=== PATIENT | female | born 1970 | race Caucasian/White ===

== ENCOUNTER → 2018-03-22 16:18 | Outpatient (CLI) | payer OTHER, SELFPAY ==
[2018-04-06 12:09] LABS: HPV HC, High Risk Negative (Negative)
[2018-04-06 13:23] LABS: HPV Reflexed? YES, CHARGE PATIENT
== END ==
PROVIDERS: Visit Provider Family Medicine
DX: Z01.419 Encounter for gynecological examination (general) (routine) without abnormal findings (principal)
CPT/HCPCS: 87624; 88175; G0145

== ENCOUNTER → 2018-04-11 15:36 | Outpatient (CLI) | payer OTHER, SELFPAY ==
--- NOTE | 2018-04-11 15:40 | BI_ITS ---
MAMMOGRAPHY - BILATERAL SCREENING REASON FOR EXAM: Female, 47 years old. Routine annual screening examination. PERTINENT HISTORY: Non-contributory. TECHNIQUE: Digital bilateral breast elida (3D mammographic acquisition) in the CC and MLO projections. 2-D mediolateral oblique (MLO) and craniocaudad (CC) views of both breasts were obtained. CAD: Full Field Digital Mammography with Computer Added Detection was performed. COMPARISON: Comparison is made with prior examination dated September 28, 2016. FINDINGS: Breast Composition: The breasts are heterogeneously dense, which may obscure small masses. There are no dominant masses or suspicious calcifications. Stable appearance of the bilateral small axillary lymph nodes. No other significant abnormalities are identified. There has been no significant change since the prior study. BI/SCREENING MAMM (CAD), BILAT IMPRESSION: Stable bilateral screening mammogram. Yearly follow-up mammogram recommended. (A) ASSESSMENT CATEGORY: BIRADS Category 2: Benign. A letter regarding these results will be sent to the patient by the facility within 30 days. Approximately 10% of breast cancers are not detected by mammography. A normal mammogram should not delay biopsy of a clinically suspicious abnormality. [id number] Electronically Signed: Marc Machado MD at 11:31 EDT Tel [phone], Service support ,
== END ==
PROVIDERS: Visit Provider Family Medicine
DX: Z12.31 Encounter for screening mammogram for malignant neoplasm of breast (principal)
CPT/HCPCS: 77063; 77067

== ENCOUNTER → 2019-04-17 17:32 | Outpatient (CLI) | payer OTHER, SELFPAY ==
[2019-04-24 16:39] LABS: HPV Reflexed? NOT INDICATED
== END ==
PROVIDERS: Referring Provider Family Medicine; Visit Provider Family Medicine
DX: Z12.4 Encounter for screening for malignant neoplasm of cervix (principal)
CPT/HCPCS: 88175; G0145

== ENCOUNTER → 2019-05-03 14:42 | Outpatient (CLI) | payer OTHER, SELFPAY ==
--- NOTE | 2019-05-03 14:44 | BI_ITS ---
MAMMOGRAPHY - BILATERAL SCREENING REASON FOR EXAM: Female, 48 years old. Routine annual screening examination. PERTINENT HISTORY: Non-contributory. TECHNIQUE: Digital bilateral breast ana lilia (3D mammographic acquisition) in the CC and MLO projections. 2-D mediolateral oblique (MLO) and craniocaudad (CC) views of both breasts were obtained. CAD: Full Field Digital Mammography with Computer Added Detection was performed. COMPARISON: Comparison is made with prior study dated April 11, 2018. FINDINGS: Breast Composition: There are scattered areas of fibroglandular density. There are no dominant masses or suspicious calcifications. Stable small bilateral axillary lymph nodes. No other significant abnormalities are identified. There has been no significant change since the prior study. BI/SCREEN MAMM (CAD) W/ANA LILIA BILAT IMPRESSION: Stable bilateral screening mammogram. Yearly follow-up mammogram recommended. (A) ASSESSMENT CATEGORY: BIRADS Category 1: Negative. A letter regarding these results will be sent to the patient by the facility within 30 days. Approximately 10% of breast cancers are not detected by mammography. A normal mammogram should not delay biopsy of a clinically suspicious abnormality. [id number] Electronically Signed: Marc Machado, at 15:43 EDT , Service support ,
== END ==
PROVIDERS: Family Provider Family Medicine; PCP Family Medicine; Referring Provider Family Medicine; Visit Provider Family Medicine
DX: Z12.31 Encounter for screening mammogram for malignant neoplasm of breast (principal)
CPT/HCPCS: 77063; 77067

== ENCOUNTER → 2019-09-24 16:10 | Outpatient (CLI) | payer OTHER, SELFPAY ==
[2019-09-24 17:59] LABS: Absolute Lymphocyte Count 2.53 X10^3/uL (0.83-4.51); Absolute Neutrophil Count 3.7 X10^3/uL (2.0-7.7); Basophil# 0.06 X10^3/uL; Basophil% 0.9 % (0-1); Eosinophil# 0.17 X10^3/uL; Eosinophils% 2.4 % (0-5); Hematocrit 42.2 % (37-47); Hemoglobin 13.8 g/dL (12.0-15.0); Lymphocyte # 2.53 X10^3/ul (4.0); Lymphocyte % 36.2 % (19-41); Mean Corp Hgb Conc 32.7 g/dL (32-36); Mean Corpuscular Hgb 29.2 pg (27.0-32.0); Mean Corpuscular Volume 89.4 fL (81-99); Mean Platelet Vol. 11.8 fl (6.2-12.0); Monocyte# 0.47 X10^3/uL; Monocyte% 6.7 % (0-10); NRBC Flagged by Analyzer 0 % (0-5); Neutrophil # 3.71 X10^3/uL (2.7-7.7); Neutrophil % 53.1 % (47-70); Platelet Count 245 K/mm3 (150-450); RBC Distribution Width SD 42.5 fl (35.1-43.9); Red Blood Count 4.72 M/mm3 (4.2-5.4)
[2019-09-24 18:22] LABS: ALB/GLOB Ratio 1.1 RATIO (0.9-2.4); AST(SGOT) 17 U/L (15-37); Alanine Aminotransfer ALT/SGPT 17 U/L (13-56); Albumin, Serum 3.8 g/dL (3.2-5.0); Alkaline Phosphatase 132 U/L (45-117); Anion Gap 5 (5-15); BUN 14 mg/dL (7-18); BUN/Creat Ratio 16.1 RATIO (10-20); Calcium,Total 8.8 mg/dL (8.5-10.1); Chloride 105 mmol/L (98-107); Creatinine, Serum 0.87 mg/dL (0.55-1.02); EST Glomerular Filtration Rate 74 mL/min (>60); Est Glom Filt Rate - Afr Amer 89 mL/min (>60); Globulin 3.6 g/dL (2.2-4.2); Glucose 97 mg/dL (74-106); Potassium 3.7 mmol/L (3.5-5.1); Protein, Total 7.4 g/dL (6.4-8.2); Sodium Level 138 mmol/L (136-145)
== END ==
PROVIDERS: Family Provider Family Medicine; PCP Family Medicine; Referring Provider Family Medicine; Visit Provider Family Medicine
DX: R00.2 Palpitations (principal)
CPT/HCPCS: 36415; 80053; 84443; 85025

== ENCOUNTER → 2020-04-02 12:17 | Outpatient (CLI) | payer OTHER, SELFPAY ==
--- NOTE | 2020-04-02 12:21 | RAD_ITS ---
STUDY: X-RAY - PELVIS AND RIGHT HIP REASON FOR EXAM: Female, 49 years old. Right hip pain x 4 days -- unaware of any injury TECHNIQUE: 3 views of the pelvis and hip. COMPARISON: None. FINDINGS: There is a non-specific bowel gas pattern. Normal visualized soft tissue structures. Normal bilateral iliac wings, sacroiliac joints and visualized sacrum. Normal bilateral superior and inferior pubic rami. Normal pubic symphysis. Normal bilateral ischial tuberosities. Normal visualized femoral head. Normal acetabulum. Normal hip joint. RAD/HIP, UNI W/ Pelvis 2-3 Views IMPRESSION: Normal x-ray examination of the pelvis and hip. Electronically Signed: Marc Machado, at 12:43 EDT , Service support ,
== END ==
PROVIDERS: PCP Family Medicine; Referring Provider Family Medicine; Visit Provider Family Medicine
DX: M25.551 Pain in right hip (principal)
CPT/HCPCS: 73502

== ENCOUNTER 2020-09-08 12:10 | Emergency (ER) | payer OTHER, SELFPAY ==
[2020-09-08] VITALS (9 sets, daily range): BP systolic 137–188; BP diastolic 86–111; PULSE 84–122; RESP 14–21; TEMP 36.7–37.2; O2SAT 95–97; BMI 48.6
--- NOTE | 2020-09-08 12:38 | ED.VIS.PSYCH ---
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 She denies being an alcoholic and does not drink heavily, daily. She denies any recent illness. She states other than drinking heavily overnight into the morning, she denies any self-injury. She used to see a counselor, however she had lumbar spinal surgery 2 or 3 months ago for a ruptured bulging disc, and has not seen her counselor since then because I have not had time. 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, IIa Right Past Medical History - Allergies and Home Meds Allergies/Adverse Reactions: Allergies Penicillins Allergy (Mild, Verified 09/08/20 12:29) rash Primary Care Physician: Korin Doll MD [Primary Care Provider] - Surgical History: - - back Lives: With Family Smoking Status: Never smoker Alcohol: Occasional Drugs: None Review of Systems General: Denies: Chills, Fever, Sweats Eyes: Denies: Visual changes - bilaterally, Diplopia ENT: Denies: Bilateral ear pain, Rhinorrhea, Sore throat Cardiovascular: Denies: Chest pain, Palpitations Respiratory: Denies: Dyspnea, Cough, Dyspnea on exertion Gastrointestinal: Denies: Abdominal pain, Nausea, Vomiting, Diarrhea, Melena, Hematochezia Genitourinary: Denies: Dysuria, Hematuria, Frequency Musculoskeletal: Denies: Myalgias, Back pain, Extremity Pain Skin: Denies: Rash, Wounds Neurological: Denies: Headache, Weakness, Numbness Psych: Reports: Depression, Anxiety, Suicidal thoughts, Suicidal ideations Physical Exam Vital Signs/Narrative: Vital Signs Temp Pulse Resp BP Pulse Ox 09/08/20 12:25 99 F 122 H 18 188/111 H 96 Inital Vital Signs reviewed: Yes General: Well nourished, Well developed, - - Tearful, intoxicated, cooperative, no distress Head: Normocephalic, Atraumatic Eyes: Perrl, EOMI ENT: Moist mucous membranes, No rhinorrhea Neck: Supple, Nontender Cardiovascular: Regular rate, Regular rhythm, No murmurs, Tachycardia Respiratory: No distress, CTA bilaterally, Chest nontender Abdomen: Soft, Nontender, Nondistended, Normal bowel sounds Back: Nontender, Normal Inspection Extremities: Nontender, No Edema Skin: Normal color, No rash Neurological: Alert, Oriented x3, Cranial nerves II-XII grossly intact, Normal Strength, Normal Sensation Psych: Good Insight, Depressed - And tearful, Poverty of Speech, Suicidal thoughts, Poor Judgement. Negative for: Homicidal thoughts, Hallucinations, Delusions, Paranoid Ideation Diagnostic/Tx/Re-eval Laboratory Results 09/08/20 09/08/20 09/08/20 11:50 12:50 12:50 WBC 8.3 RBC 5.16 Hgb 15.4 H Hct 45.6 MCV 88.4 MCH 29.8 MCHC 33.8 RDW Std Deviation 41.6 RDW Coeff of Reza 12.7 Plt Count 347 MPV 9.4 Immature Gran % (Auto) 0.200 Neut % (Auto) 68.4 Lymph % (Auto) 26.6 [place] % (Auto) 4.0 Eos % (Auto) 0.1 Baso % (Auto) 0.7 Absolute Neuts (auto) 5.7 Absolute Lymphs (auto) 2.20 Nucleated RBC % 0 PT 12.8 INR 1.0 Sodium Potassium Chloride Carbon Dioxide Anion Gap BUN Creatinine Estim Creat Clear Calc Est GFR (MDRD) Af Amer Est GFR (MDRD) Non-Af BUN/Creatinine Ratio Glucose Calcium Total Bilirubin AST ALT Alkaline Phosphatase Total Protein Albumin Globulin Albumin/Globulin Ratio Serum , Qual Urine Color Yellow Urine Clarity Clear Urine pH 5.0 Ur Specific [place] 1.025 Urine Protein 100 H Urine Glucose (UA) Normal Urine Ketones 150 H Urine Occult Blood 50 H Urine Nitrite Negative Urine Bilirubin Negative Urine Urobilinogen Normal Ur Leukocyte Esterase Negative Urine RBC 0-5 SEEN Urine WBC 0-5 SEEN Ur Squamous Epith Cells 0-5 SEEN Urine Bacteria RARE Fine Granular Casts 0-5 SEEN Urine Mucus 0 SEEN Urine Opiates Screen Urine Methadone Screen Ur Barbiturates Screen Ur Phencyclidine Scrn Ur Amphetamines Screen U Methamphetamin-MDMA U Benzodiazepines Scrn Urine Cocaine Screen U Cannabinoids Screen Ur Drug Screen Comment Ethyl Alcohol 09/08/20 09/08/20 09/08/20 12:50 12:50 12:50 WBC RBC Hgb Hct MCV MCH MCHC RDW Std Deviation RDW Coeff of Reza Plt Count MPV Immature Gran % (Auto) Neut % (Auto) Lymph % (Auto) [place] % (Auto) Eos % (Auto) Baso % (Auto) Absolute Neuts (auto) Absolute Lymphs (auto) Nucleated RBC % PT INR Sodium 139 Potassium 3.9 Chloride 102 Carbon Dioxide 22.0 Anion Gap 15 BUN 15 Creatinine 0.77 Estim Creat Clear Calc 89.15 Est GFR (MDRD) Af Amer 102 Est GFR (MDRD) Non-Af 84 BUN/Creatinine Ratio 19.4 Glucose 94 Calcium 8.6 Total Bilirubin 0.60 AST 27 ALT 23 Alkaline Phosphatase 186 H Total Protein 8.0 Albumin 4.0 Globulin 4.0 Albumin/Globulin Ratio 1.0 Serum , Qual Urine Color Urine Clarity Urine pH Ur Specific [place] Urine Protein Urine Glucose (UA) Urine Ketones Urine Occult Blood Urine Nitrite Urine Bilirubin Urine Urobilinogen Ur Leukocyte Esterase Urine RBC Urine WBC Ur Squamous Epith Cells Urine Bacteria Fine Granular Casts Urine Mucus Urine Opiates Screen NEGATIVE Urine Methadone Screen NEGATIVE Ur Barbiturates Screen NEGATIVE Ur Phencyclidine Scrn NEGATIVE Ur Amphetamines Screen NEGATIVE U Methamphetamin-MDMA NEGATIVE U Benzodiazepines Scrn NEGATIVE Urine Cocaine Screen NEGATIVE U Cannabinoids Screen NEGATIVE Ur Drug Screen Comment Ethyl Alcohol 264.0 09/08/20 12:50 WBC RBC Hgb Hct MCV MCH MCHC RDW Std Deviation RDW Coeff of Reza Plt Count MPV Immature Gran % (Auto) Neut % (Auto) Lymph % (Auto) [place] % (Auto) Eos % (Auto) Baso % (Auto) Absolute Neuts (auto) Absolute Lymphs (auto) Nucleated RBC % PT INR Sodium Potassium Chloride Carbon Dioxide Anion Gap BUN Creatinine Estim Creat Clear Calc Est GFR (MDRD) Af Amer Est GFR (MDRD) Non-Af BUN/Creatinine Ratio Glucose Calcium Total Bilirubin AST ALT Alkaline Phosphatase Total Protein Albumin Globulin Albumin/Globulin Ratio Serum , Qual NEGATIVE Urine Color Urine Clarity Urine pH Ur Specific [place] Urine Protein Urine Glucose (UA) Urine Ketones Urine Occult Blood Urine Nitrite Urine Bilirubin Urine Urobilinogen Ur Leukocyte Esterase Urine RBC Urine WBC Ur Squamous Epith Cells Urine Bacteria Fine Granular Casts Urine Mucus Urine Opiates Screen Urine Methadone Screen Ur Barbiturates Screen Ur Phencyclidine Scrn Ur Amphetamines Screen U Methamphetamin-MDMA U Benzodiazepines Scrn Urine Cocaine Screen U Cannabinoids Screen Ur Drug Screen Comment Ethyl Alcohol Patient has been cooperative. She is medically cleared. Labs above. Alcohol 264. Social work is evaluating for placement, she is pink slipped and we anticipate transfer to a psychiatric facility for further evaluation and treatment. ED Disposition - Plan for ED Patient: Disposition: Psychiatric Hospital or Unit Diagnosis: Suicidal ideation, Alcohol intoxication Referrals: Korin Doll MD [Primary Care Provider] -
[2020-09-08 13:00] LABS: Absolute Neutrophil Count 5.7 X10^3/uL (2.0-7.7); Basophil# 0.06 X10^3/uL; Basophil% 0.7 % (0-1); Eosinophil# 0.01 X10^3/uL; Eosinophils% 0.1 % (0-5); Hematocrit 45.6 % (37-47); Hemoglobin 15.4 g/dL (12.0-15.0); Lymphocyte % 26.6 % (19-41); Mean Corp Hgb Conc 33.8 g/dL (32-36); Mean Corpuscular Hgb 29.8 pg (27.0-32.0); Mean Corpuscular Volume 88.4 fL (81-99); Mean Platelet Vol. 9.4 fl (6.2-12.0); Monocyte# 0.33 X10^3/uL; NRBC Flagged by Analyzer 0 % (0-5); Neutrophil # 5.66 X10^3/uL (2.7-7.7); Neutrophil % 68.4 % (47-70); Platelet Count 347 K/mm3 (150-450); RBC Distribution Width CV 12.7 % (11.6-14.6); RBC Distribution Width SD 41.6 fl (35.1-43.9); Red Blood Count 5.16 M/mm3 (4.2-5.4); White Blood Count 8.3 K/mm3 (4.4-11.0)
--- NOTE | 2020-09-08 13:00 | CM.ED ---
SOCIAL WORK Informant: Nursing and Dr. Jacques Reason for Consult: Suicidal Ideation, [place] Slipped by [place] PD Collaboration with Dr. Jacques. Patient intoxicated, alcohol level is 264. Unable to assess patient at this time. Deedee Wetzel, DATA MANAGER, FRAMING AND HANGING
[2020-09-08 13:08] LABS: Color, Urine Yellow (Yellow); Glucose, Dipstick Normal (Normal); Leukocyte Esterase-Dipstick Negative /ul (Negative); Mucous, Urine 0 SEEN /hpf (<or=2+); Nitrite-Dipstick Negative (Negative); Occult Blood-Urine 50 /ul (Negative); Protein-Dipstick 100 mg/dl (Negative); Specific Gravity, Urine 1.025 (1.002-1.030); Urine Bilirubin Dipstick Negative (Negative); Urine Clarity Clear (Clear); Urine Urobilinogen Normal (Normal)
[2020-09-08 13:15] LABS: AST(SGOT) 27 U/L (15-37); Alanine Aminotransfer ALT/SGPT 23 U/L (13-56); Alkaline Phosphatase 186 U/L (45-117); Anion Gap 15 (5-15); BUN 15 mg/dL (7-18); BUN/Creat Ratio 19.4 RATIO (10-20); Calcium,Total 8.6 mg/dL (8.5-10.1); Chloride 102 mmol/L (98-107); Creatinine, Serum 0.77 mg/dL (0.55-1.02); EST Glomerular Filtration Rate 84 mL/min (>60); Est Glom Filt Rate - Afr Amer 102 mL/min (>60); Estimated Creatinine Clearance 89.15 ml/min; Glucose 94 mg/dL (74-106); Potassium 3.9 mmol/L (3.5-5.1); Sodium Level 139 mmol/L (136-145)
[2020-09-08 13:25] LABS: Ketone-Dipstick 150 mg/dl (Negative)
[2020-09-08 13:26] LABS: Internal QC Validated? YES +Cl - CLEAR BKGD; Pregnancy, Serum, hCG Quali. NEGATIVE Negative
[2020-09-08 13:28] LABS: Amphetamine Urine VISTA NEGATIVE (<1000 ng/mL); Barbiturate Urine VISTA NEGATIVE (< 200 ng/mL); Benzodiazepine Urine VISTA NEGATIVE (< 200 ng/mL); Cocaine Urine VISTA NEGATIVE (< 300 ng/mL); Ecstacy Urine VISTA NEGATIVE (< 500 ng/mL); Methadone Urine VISTA NEGATIVE (< 300 ng/mL); PCP Urine VISTA NEGATIVE (< 25 ng/mL); THC Urine VISTA NEGATIVE (< 50 ng/mL); Vista UDS pH Range 5
[2020-09-08 13:28] LABS: Bacteria RARE /hpf (None Seen); Fine Granular Cast- Urine 0-5 SEEN /lpf (0-5); Red Blood Cells-Urine 0-5 SEEN /hpf (0-5); Squamous Epithelial Cells - UA 0-5 SEEN /hpf (5-10); White Blood Cells 0-5 SEEN /hpf (0-5)
[2020-09-08 13:37] LABS: Prothrombin Time (Protime)PT. 12.8 SECONDS (11.7-14.9)
--- NOTE | 2020-09-08 14:30 | CM.ED ---
SOCIAL WORK Met with patient in room per request. Patient states family has recommended [facility] for inpatient psych placement. Introduced self to worker and informed of plan of care and that this worker will assess patient once alcohol level is under 100. Patient verbalized understanding. Deedee Wetzel, CHIMNEY MECHANIC, MAINTAINER OPERATOR
--- NOTE | 2020-09-08 16:00 | CM.ED ---
SOCIAL WORK Patient requested this worker call , Aurelio to update on status. Call to patient's [phone]. Updated on status. reports this one came out of nowhere. states over the last 5-6 years patient has had alcohol binges. states, she is in denial that she's drinking. reports patient hides her drinking from family. believes when patient stays in [place] once a week due to drive to and from work being over hour and a half she binge drinks on those nights. states about 2 years ago patient had been drinking and was hearing voices telling her to kill herself. reports at that time he took her to [facility] and she was [place] Slipped and admitted to psych unit at that time. reports they had talked about Bipolar Disorder and Schizophrenia, but nothing was done. reports has not seen patient since Tuesday morning. states patient had planned to return home on night after work, but decided not to come home. states patient got caught at work on Tuesday and he feels she believes she lost her job. states patient reported to him on Tuesday her work discussed patient taking FMLA to get help. states patient had been texting him saying she had to to be able to care for us. states she regrets not succeeding in suicide attempt. states patient had texted him stating she was going to drink herself to or drive into a tree. states patient has battled depression for many years and self medicates with alcohol. reports it's self-loathing, shes not comfortable with herself alone. Much emotional support and active listening provided to throughout call. Informed will call with update once bed confirmed at facility. Patient updated that has been notified and updated on status. Deedee Wetzel, SWIMMING POOL SERVICER, SAW TAILER
[2020-09-08 16:03] LABS: Probe Check PASS; Specimen Processing Control PASS
--- NOTE | 2020-09-08 21:03 | CM.ED ---
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 Patient states was on Celexa for 10 years and transitioned to Celexa. Patient reports follows with counselor, Josephine Adams in [place]. Patient unable to recall name of agency. Patient states 2 years ago was [place] Slipped at [facility] and spent a day and a half in psych facility. Patient reports in December was sitting in a parked car in a parking lot trying to drink myself to . Patient reports was arrested and is currently on probation with a restricted license until next February. Triggers/Stressors: Patient states Tuesday she showed up to work drunk. Patient concerned and worried about being terminated. Patient reports employer discussed taking FMLA to get help. Patient states has history of trauma that I never thought was trauma until in counseling. Patient reports at age 14 father left the home, at age 16 lost her best friend due to a car accident, and at age 20 mother . Coping Skills: Patient reports sleeping. Substance Abuse History: Alcohol. Patient reports history of binge drinking to numb feelings. Patient has been drinking since evening. Risk to Self/Others: Suicidal- Patient admits to suicidal ideation. Patient reports the only thing I had was my car and I didn't want to hurt anyone else. I wanted to drink myself to . Homicidal- Patient denies any homicidal ideation. Mental Status Exam: Orientation: A&Ox3 Memory: Fair Appearance/General Behavior: disheveled, calm Mood/Affect: depressed, anxious, flat Communication Pattern: responds to questions Thought Process: appropriate Judgment: poor Assessment: Met with patient in room to complete assessment. Patient admits to suicidal ideation. Patient stating I just don't know how to come back from this. Patient identifies feelings of disassociation, self-hatred and self-loathing. Patient reports 20 year history of depression and states has been treated with medication and believes would benefit from a mood stabilizer. Patient openly discussed mental health history, history of trauma and alcohol abuse. Patient admits to binge drinking and states once I start, I can't stop. Patient reports drinks to numb self. During assessment, observed patient's legs and hand shaking. Updated Dr. Ribeiro and nursing. Collaboration with Dr. Jacques and Dr. Ribeiro. Plan for inpatient psych hospitalization for dual diagnosis. This worker to facilitate placement. Plan: Referral to [facility], [facility]
[2020-09-08] MEDS: LORazepam 2 MG/ML Syringe 1 MG IV (21:05)
--- NOTE | 2020-09-08 21:30 | EKG12_ITS ---
Test Reason : DYSRHYTHMIA Blood Pressure : / mmHG Vent. Rate : 092 BPM Atrial Rate : 092 BPM P-R Int : 110 ms QRS Dur : 078 ms QT Int : 388 ms P-R-T Axes : 038 065 078 degrees QTc Int : 479 ms Sinus rhythm with short ME Otherwise normal ECG Confirmed by KIRIT QUINTERO, MELINA ([id number]), editorial clerk DIOGENES GRANADOS ([id number]) on 09/10/2020 1:46:44 PM Referred By: THALIA Confirmed By:MELINA BETH MD
--- NOTE | 2020-09-08 21:42 | CM.ED ---
Addendum entered by Charmaine Wetzel 09/08/20 21:53: [facility], last bed at facility has just been filled. Original Note: SOCIAL WORK Referral called and faxed to [facility]. Deedee Wetzel, LOGISTICS ADMINISTRATOR, MR TEACHER
--- NOTE | 2020-09-08 21:53 | CM.ED ---
Addendum entered by Charmaine Wetzel 09/08/20 22:43: Call from Sujatha with [facility]. Per Sujatha, unable to accommodate patient at this time. Original Note: SOCIAL WORK Referral called and faxed to [facility] for review. Deedee Wetzel, BEEF GRINDER, INSIDE SALES RECRUITER
--- NOTE | 2020-09-08 22:44 | CM.ED ---
SOCIAL WORK Referral called and faxed to [facility]. Pending review at this time. Deedee Wetzel, LINE INSTALLATION SUPERVISOR, BENEFITS CONSULTING ANALYST
--- NOTE | 2020-09-08 23:01 | CM.ED ---
SOCIAL WORK Received call from admission worker at [facility]. Patient accepted. [place] [facility] requesting copy of [facility] prior to giving accepting information. Copy of [facility] faxed. Awaiting call back. Call to patient's , Aurelio to update on accepting facility. provided with contact information for [facility]. Deedee Wetzel, BRAZING MACHINE OPERATOR AUTOMATIC, ADMIN SECRETARY
--- NOTE | 2020-09-08 23:10 | CM.ED ---
SOCIAL WORK Patient updated on acceptance to [facility] in [place]. All questions answered. Deedee Wetzel, DISPLAY MANAGER, OUTREACH REPRESENTATIVE
--- NOTE | 2020-09-08 23:22 | CM.ED ---
SOCIAL WORK [facility] faxed over their own COVID-19 screen for nurse to complete and sign. Screen completed and faxed back to [facility]. Deedee Wetzel, GARAGE LABORER, SPORTS MEDICINE COORDINATOR
[2020-09-09] VITALS: BP 164/100; PULSE 102; RESP 20; O2SAT 96
[2020-09-09 00:42] VITALS: BP 129/78; PULSE 85; RESP 18; O2SAT 98
[2020-09-09 01:00] VITALS: BP 150/89; PULSE 84; RESP 18; O2SAT 98
== END 2020-09-09 01:13 ==
PROVIDERS: Emergency Medicine; Emergency Provider Emergency Medicine; PCP Family Medicine
DX: F31.9 Bipolar disorder, unspecified (principal); R45.851 Suicidal ideations; F10.129 Alcohol abuse with intoxication, unspecified; I10 Essential (primary) hypertension; Z79.899 Other long term (current) drug therapy
CPT/HCPCS: 80053; 80307; 80320; 81001; 84703; 85025; 85610; 87635; 93005; 96374; 99285; A4216; G0480; U0002